=== PATIENT | male | born 2000 | race Two or more races ===

== ENCOUNTER 2022-11-16 01:02 | Inpatient (IN) | payer BC, OTHER ==
[~2022-11-16] VITALS: Ht 195.6 cm; Wt 75.5 kg
[2022-11-16] MEDS ORDERED: OXYCODONE W/ ACETAMINOPHEN 5/325MG TABLET PO ONE (01:30)
[2022-11-16] MEDS ORDERED: METOCLOPRAMIDE HCL 5MG/ml INJ 2ml VIAL IV ONE (01:30)
[2022-11-16 01:58] LABS: Basophils # (auto) 0 10 ^3/uL (0-0.2); Basophils % (auto) 0.3 % (0.0-2.0); Eosinophils # (auto) 0 10 ^3/uL (0-0.8); Hematocrit 27.5 % (41.0-53.0); Hemoglobin 9.1 g/dL (13.5-17.5); Lymphocytes # (auto) 1.2 10 ^3/uL (0.4-5.4); Lymphocytes % (auto) 26.8 % (10.0-50.0); Mean Corpuscular Hgb Conc. 33.2 g/dL (32.0-36.0); Mean Corpuscular Volume 84.4 fL (80.0-100.0); Monocytes # (auto) 0.5 10 ^3/uL (0-1.3); Monocytes % (auto) 11.7 % (0.0-12.0); Neutrophils # (auto) 2.7 10 ^3/uL (1.6-8.6); Neutrophils % (auto) 60.2 % (37.0-80.0); Red Blood Cells 3.26 10^6/uL (4.5-5.90); Red Cell Distribution Width 18.1 % (11.8-14.3); White Blood Cell 4.4 10^3/uL (4.4-10.8)
[2022-11-16 02:22] LABS: INR 1.13 (0.9-1.15); Partial Thromboplastin Time 33.3 sec (24.6-33.4)
[2022-11-16 02:24] LABS: Albumin 1.8 g/dL (3.4-5.0); BUN/Creatinine Ratio 27.9 (10.0-20.0); Calcium 8.1 mg/dL (8.5-10.1); Magnesium 1.6 mg/dL (1.6-2.6); Potassium 3.4 mmol/L (3.5-5.1)
[2022-11-16 02:27] LABS: Bilirubin, Total 0.7 mg/dL (0.2-1.0); Total Protein 5.6 g/dL (6.4-8.2)
[2022-11-16] MEDS ORDERED: HYDROmorphone HCL 2 MG/ML VL/or syr IV ONE ×2 (02:45→04:30)
[2022-11-16] MEDS ORDERED: ACETAMINOPHEN IV 1000 MG/100ML (10MG/ML) IV PRN (02:45)
[2022-11-16] MEDS ORDERED: ONDANSETRON HCL 4 MG/2 ML VIAL IV ONE (02:45)
[2022-11-16] MEDS ORDERED: IOHEXOL 350 MG/ML 100ML IJ ONE (03:02)
[2022-11-16] MEDS ORDERED: ACETAMINOPHEN IV 1000 MG/100ML (10MG/ML) IV SCH (03:30)
[2022-11-16] MEDS ORDERED: D5W/SOD CHLO 0.9% 1,000 ML IV SCH (04:45)
[2022-11-16 05:02] LABS: Urine Bacteria NONE SEEN /hpf (None Seen); Urine WBC 1 /hpf (0 - 3)
[2022-11-16 05:12] LABS: Urine Specific Gravity 1.005 (1.001-1.035)
[2022-11-16 05:13] LABS: Urine Blood 1+ /uL (Negative)
[2022-11-16] MEDS: ONDANSETRON HCL 4 MG/2 ML VIAL IV PRN ×3 (08:06→16:49)
[2022-11-16] MEDS: MORPHINE SULFATE INJ 2 MG/ml SYRG IV PRN ×4 (08:07→22:20)
[2022-11-16] MEDS: PANTOPRAZOLE 40 MG/10 ML VIAL INJ IV SCH (10:11)
[2022-11-16] MEDS: D5W/SOD CHLO 0.9% 1,000 ML IV SCH ×2 (10:45→20:45)
[2022-11-16] MEDS ORDERED: SODIUM CHLORIDE 0.9% 1,000 ML IV ONE (10:45)
[2022-11-16] MEDS ORDERED: POTASSIUM CHL 20MEQ/100ML 100 ML IV ONE (12:00)
[2022-11-16] MEDS: MAGNESIUM SULFATE 1GM/100ML 100 ML IV SCH ×2 (13:08→15:27)
[2022-11-16] MEDS ORDERED: GASTROGRAFIN 120 ML SOL ONE (13:48)
[2022-11-16] MEDS ORDERED: PROMETHAZINE HCL 25 MG/ML 1ML IV PRN (19:00)
[2022-11-16] MEDS: SODIUM CHLORIDE 0.9% 1,000 ML IV SCH (19:09)
[2022-11-17] MEDS: MORPHINE SULFATE INJ 2 MG/ml SYRG IV PRN ×5 (02:30→18:58)
[2022-11-17 05:00] VITALS: BP 100/60
[2022-11-17] MEDS: SODIUM CHLORIDE 0.9% 1,000 ML IV SCH ×2 (05:00→15:00)
[2022-11-17 05:22] LABS: Basophils # (auto) 0 10 ^3/uL (0-0.2); Basophils % (auto) 0.6 % (0.0-2.0); Eosinophils # (auto) 0.1 10 ^3/uL (0-0.8); Eosinophils % (auto) 2.1 % (0.0-7.0); Hematocrit 28.2 % (41.0-53.0); Lymphocytes # (auto) 2.4 10 ^3/uL (0.4-5.4); Lymphocytes % (auto) 46.8 % (10.0-50.0); Mean Corpuscular Hemoglobin 27.9 pg (28.0-32.0); Mean Corpuscular Volume 87.1 fL (80.0-100.0); Monocytes # (auto) 0.9 10 ^3/uL (0-1.3); Monocytes % (auto) 17.6 % (0.0-12.0); Neutrophils # (auto) 1.7 10 ^3/uL (1.6-8.6); Neutrophils % (auto) 32.9 % (37.0-80.0); Nucleated Red Blood Cells % 0.1 %; Red Blood Cells 3.23 10^6/uL (4.5-5.90); Red Cell Distribution Width 19.4 % (11.8-14.3); White Blood Cell 5.1 10^3/uL (4.4-10.8)
[2022-11-17 05:30] LABS: Albumin 1.9 g/dL (3.4-5.0); Calcium 8.1 mg/dL (8.5-10.1); Magnesium 2.3 mg/dL (1.6-2.6); Potassium 3.7 mmol/L (3.5-5.1)
[2022-11-17 05:35] LABS: BUN/Creatinine Ratio 17.4 (10.0-20.0); Bilirubin, Total 0.5 mg/dL (0.2-1.0); Total Protein 5.7 g/dL (6.4-8.2)
[2022-11-17] MEDS ORDERED: CELE200C (05:45)
[2022-11-17] MEDS ORDERED: ASPI1CHW5 PO (05:45)
[2022-11-17] MEDS ORDERED: GAB100C PO (05:45)
[2022-11-17] MEDS ORDERED: METO-517 PO (05:45)
[2022-11-17] MEDS ORDERED: TRAM50TA2 PO (05:45)
[2022-11-17] MEDS: D5W/SOD CHLO 0.9% 1,000 ML IV SCH (06:44)
[2022-11-17 09:00] VITALS: BP 109/64
[2022-11-17] MEDS: PANTOPRAZOLE 40 MG/10 ML VIAL INJ IV SCH (09:44)
[2022-11-17] MEDS: ONDANSETRON HCL 4 MG/2 ML VIAL IV PRN (10:57)
[2022-11-17] MEDS ORDERED: COLCHICINE 0.6 MG CAP PO SCH (12:15)
[2022-11-17] MEDS ORDERED: ASPirin-EC 81 mg tab PO SCH (12:15)
[2022-11-17 13:00] VITALS: BP 116/68
[2022-11-17 16:35] VITALS: BP 109/55
[2022-11-17 18:58] VITALS: BP 110/58
== END 2022-11-17 20:30 | disposition home health service (06) | DRG 388 ==
LOC: ER 01:02 → EDBD 01:02 → OVERFLOW 04:34 → WEST WING 21:35
PROVIDERS: ADMIT Nurse Practitioner; ATTEND Internal Medicine
PROC: 0D9670Z Drainage of Stomach with Drainage Device, Via Natural or Artificial Opening (ICD-10-PCS; principal; 2022-11-16)
DX: K56.50 Intestinal adhesions [bands], unspecified as to partial versus complete obstruction (principal); E43 Unspecified severe protein-calorie malnutrition; Z68.1 Body mass index [BMI] 19.9 or less, adult; Z86.79 Personal history of other diseases of the circulatory system
CPT/HCPCS: 36415; 71260; 74177; 74250; 80053; 81001; 83605; 83690; 83735; 84484; 85025; 85610; 85730; 93005; 96374; 96375; 99291; C9113; G0378; J0131; J2405; J3480

== ENCOUNTER 2023-05-24 19:57 | Inpatient (IN) | payer BC ==
[~2023-05-24] VITALS: Ht 185.4 cm; Wt 85.5 kg
[~2023-05-24 19:57] MED LIST: ASPI1CHW5 PO; GAB100C PO
[2023-05-24 20:53] LABS: Urine Bacteria NONE SEEN /hpf (None Seen); Urine Blood Negative /uL (Negative); Urine Clarity Clear (Clear); Urine Color Yellow (Yellow); Urine Mucus FEW (None Seen); Urine Protein, UAD TRACE (Negative); Urine Specific Gravity 1.043 (1.001-1.035); Urine Urobilinogen Normal (Negative); Urine WBC 1 /hpf (0 - 3); Urine pH 6.5 (5.0-8.0)
[2023-05-24 21:16] LABS: Basophils # (auto) 0 10 ^3/uL (0-0.2); Basophils % (auto) 0.4 % (0.0-2.0); Eosinophils # (auto) 0.1 10 ^3/uL (0-0.8); Hemoglobin 11.8 g/dL (13.5-17.5); Mean Corpuscular Volume 84.2 fL (80.0-100.0); Monocytes # (auto) 0.6 10 ^3/uL (0-1.3)
[2023-05-24 21:17] LABS: Eosinophils % (auto) 1.3 % (0.0-7.0); Hematocrit 36.6 % (41.0-53.0); Lymphocytes % (auto) 42.9 % (10.0-50.0); Mean Corpuscular Hemoglobin 27.1 pg (28.0-32.0); Mean Corpuscular Hgb Conc. 32.2 g/dL (32.0-36.0); Monocytes % (auto) 5.9 % (0.0-12.0); Neutrophils # (auto) 4.6 10 ^3/uL (1.6-8.6); Neutrophils % (auto) 49.5 % (37.0-80.0); Nucleated Red Blood Cells % 0.1 %; Red Blood Cells 4.35 10^6/uL (4.5-5.90); Red Cell Distribution Width 14.8 % (11.8-14.3); White Blood Cell 9.4 10^3/uL (4.4-10.8)
[2023-05-24 21:32] LABS: Alanine Aminotransferase 17 U/L (7-40); Albumin 4.4 g/dL (3.2-4.8); Alkaline Phosphatase 86 U/L (46-116); Anion Gap 7 (5-15); Aspartate Aminotransferase 14 U/L (13-40); BUN/Creatinine Ratio 22.1 (10.0-20.0); Bilirubin, Total 0.5 mg/dL (0.2-1.0); Blood Urea Nitrogen 15 mg/dL (9-23); Calcium 8.7 mg/dL (8.7-10.4); Carbon Dioxide 23 mmol/L (20-30); Chloride 111 mmol/L (98-107); Glucose 88 mg/dL (74-106); Lipase 31 U/L (12-53); Potassium 3.7 mmol/L (3.5-5.1); Sodium 141 mmol/L (136-145); Total Protein 7.1 g/dL (5.7-8.2)
[2023-05-24] MEDS ORDERED: MORPHINE SULFATE 4 MG/ML SYR/VIAL IV ONE (22:30)
[2023-05-24] MEDS ORDERED: ONDANSETRON HCL 4 MG/2 ML VIAL IV ONE (22:30)
[2023-05-24] MEDS ORDERED: LACTATED RINGER'S 2,450 ML IV ONE (22:30)
[2023-05-24] MEDS ORDERED: LACTATED RINGER'S 1,000 ML IV ONE (22:30)
[2023-05-25 00:41] VITALS: PULSE 88; RESP 18; O2SAT 97
[2023-05-25] MEDS ORDERED: PANTOPRAZOLE 40 MG/10 ML VIAL INJ IV ONE (02:15)
[2023-05-25] MEDS: ONDANSETRON HCL 4 MG/2 ML VIAL IV PRN ×2 (04:28→20:01)
[2023-05-25] MEDS: MORPHINE SULFATE INJ 2 MG/ml SYRG IV PRN ×4 (04:28→20:05)
[2023-05-25] MEDS: SODIUM CHLORIDE 0.9% 1,000 ML IV SCH ×3 (05:44→23:43)
[2023-05-25 05:58] LABS: Anion Gap 5 (5-15); Carbon Dioxide 26 mmol/L (20-30); Chloride 111 mmol/L (98-107); Potassium 3.8 mmol/L (3.5-5.1); Sodium 142 mmol/L (136-145)
[2023-05-25 05:59] LABS: Calcium 8.5 mg/dL (8.7-10.4)
[2023-05-25 06:04] LABS: BUN/Creatinine Ratio 23.2 (10.0-20.0); Blood Urea Nitrogen 16 mg/dL (9-23); Glucose 88 mg/dL (74-106); INR 1.09 (0.9-1.15); Prothrombin Time 11.4 sec (9.3-11.8)
[2023-05-25 06:37] LABS: Basophils # (auto) 0 10 ^3/uL (0-0.2); Basophils % (auto) 0.3 % (0.0-2.0); Eosinophils # (auto) 0.1 10 ^3/uL (0-0.8); Eosinophils % (auto) 1.4 % (0.0-7.0); Hematocrit 31.6 % (41.0-53.0); Lymphocytes # (auto) 4.1 10 ^3/uL (0.4-5.4); Lymphocytes % (auto) 50.1 % (10.0-50.0); Mean Corpuscular Hemoglobin 26.9 pg (28.0-32.0); Mean Corpuscular Hgb Conc. 31.8 g/dL (32.0-36.0); Mean Corpuscular Volume 84.5 fL (80.0-100.0); Monocytes # (auto) 0.5 10 ^3/uL (0-1.3); Monocytes % (auto) 6.4 % (0.0-12.0); Neutrophils # (auto) 3.4 10 ^3/uL (1.6-8.6); Neutrophils % (auto) 41.8 % (37.0-80.0); Nucleated Red Blood Cells % 0.1 %; Red Blood Cells 3.74 10^6/uL (4.5-5.90); Red Cell Distribution Width 14.8 % (11.8-14.3); White Blood Cell 8.2 10^3/uL (4.4-10.8)
[2023-05-25 07:51] VITALS: PULSE 67; RESP 16; O2SAT 98
[2023-05-25] MEDS ORDERED: GASTROGRAFIN 120 ML SOL ONE (08:36)
[2023-05-25 18:37] LABS: Chloride 112 mmol/L (98-107); Potassium 4.5 mmol/L (3.5-5.1); Sodium 141 mmol/L (136-145)
[2023-05-25 18:38] LABS: Anion Gap 8 (5-15); Calcium 8.8 mg/dL (8.5-10.1); Carbon Dioxide 21 mmol/L (20-30)
[2023-05-25 18:43] LABS: BUN/Creatinine Ratio 8.8 (10.0-20.0); Glucose 76 mg/dL (74-106)
[2023-05-25 18:44] LABS: Blood Urea Nitrogen 6 mg/dL (9-23)
[2023-05-25 19:34] VITALS: PULSE 68; RESP 17; O2SAT 98
[2023-05-26] MEDS: ONDANSETRON HCL 4 MG/2 ML VIAL IV PRN (01:26)
[2023-05-26] MEDS: MORPHINE SULFATE INJ 2 MG/ml SYRG IV PRN ×4 (01:27→23:16)
[2023-05-26 06:00] LABS: Chloride 112 mmol/L (98-107); Potassium 3.6 mmol/L (3.5-5.1); Sodium 143 mmol/L (136-145)
[2023-05-26 06:01] LABS: Anion Gap 6 (5-15); Carbon Dioxide 25 mmol/L (20-30)
[2023-05-26 06:02] LABS: Calcium 8.3 mg/dL (8.5-10.1)
[2023-05-26 06:06] LABS: Basophils # (auto) 0 10 ^3/uL (0-0.2); Basophils % (auto) 0.2 % (0.0-2.0); Eosinophils # (auto) 0.1 10 ^3/uL (0-0.8); Eosinophils % (auto) 1.7 % (0.0-7.0); Glucose 69 mg/dL (74-106); Hematocrit 30.9 % (41.0-53.0); Hemoglobin 9.9 g/dL (13.5-17.5); Lymphocytes # (auto) 3.3 10 ^3/uL (0.4-5.4); Mean Corpuscular Hemoglobin 27.2 pg (28.0-32.0); Mean Corpuscular Hgb Conc. 32.2 g/dL (32.0-36.0); Mean Corpuscular Volume 84.6 fL (80.0-100.0); Monocytes # (auto) 0.6 10 ^3/uL (0-1.3); Monocytes % (auto) 7.6 % (0.0-12.0); Neutrophils # (auto) 3.4 10 ^3/uL (1.6-8.6); Neutrophils % (auto) 46.5 % (37.0-80.0); Nucleated Red Blood Cells % 0.1 %; Red Blood Cells 3.65 10^6/uL (4.5-5.90); Red Cell Distribution Width 15.1 % (11.8-14.3); White Blood Cell 7.4 10^3/uL (4.4-10.8)
[2023-05-26 06:07] LABS: BUN/Creatinine Ratio 14.3 (10.0-20.0); Blood Urea Nitrogen 10 mg/dL (9-23)
[2023-05-26] MEDS: SODIUM CHLORIDE 0.9% 1,000 ML IV SCH ×2 (08:24→18:15)
[2023-05-26 08:32] VITALS: PULSE 90; RESP 18; O2SAT 97
[2023-05-26 09:00] VITALS: BP 105/55; PULSE 83; RESP 20; TEMP 98.3; O2SAT 100
[2023-05-26] MEDS ORDERED: SODIUM CHLORIDE 0.9% 500 ML IV ONE (11:30)
[2023-05-26] MEDS: ACETAMINOPHEN 325 MG TAB PO PRN ×2 (11:55→20:40)
[2023-05-26 13:15] VITALS: BP 122/84; PULSE 84; RESP 18; TEMP 98; O2SAT 95
[2023-05-26 17:00] VITALS: BP 108/52; TEMP 98.4; O2SAT 97
[2023-05-26 20:00] VITALS: BP 119/64; PULSE 106; PULSE 107; PULSE 97; RESP 17; TEMP 97.9; O2SAT 95
[2023-05-26 22:00] VITALS: BP 119/64; PULSE 97; RESP 17; TEMP 97.9; O2SAT 95
[2023-05-27] VITALS (8 sets, daily range): BP systolic 106–119; BP diastolic 55–67; PULSE 61–97; RESP 12–22; TEMP 97–98.7; O2SAT 95–100
[2023-05-27] MEDS: SODIUM CHLORIDE 0.9% 1,000 ML IV SCH ×2 (04:32→14:40)
[2023-05-27] MEDS: MORPHINE SULFATE INJ 2 MG/ml SYRG IV PRN ×5 (04:32→22:09)
[2023-05-27] MEDS ORDERED: CELE100C82 PO (07:08)
[2023-05-27 08:14] LABS: Basophils # (auto) 0 10 ^3/uL (0-0.2); Basophils % (auto) 0.4 % (0.0-2.0); Eosinophils # (auto) 0.2 10 ^3/uL (0-0.8); Eosinophils % (auto) 2.3 % (0.0-7.0); Hematocrit 35.3 % (41.0-53.0); Hemoglobin 11.4 g/dL (13.5-17.5); Lymphocytes # (auto) 3.3 10 ^3/uL (0.4-5.4); Lymphocytes % (auto) 41.3 % (10.0-50.0); Mean Corpuscular Hemoglobin 27.4 pg (28.0-32.0); Mean Corpuscular Hgb Conc. 32.4 g/dL (32.0-36.0); Mean Corpuscular Volume 84.5 fL (80.0-100.0); Monocytes # (auto) 0.7 10 ^3/uL (0-1.3); Monocytes % (auto) 8.9 % (0.0-12.0); Neutrophils # (auto) 3.7 10 ^3/uL (1.6-8.6); Neutrophils % (auto) 47.1 % (37.0-80.0); Red Blood Cells 4.17 10^6/uL (4.5-5.90); Red Cell Distribution Width 15.1 % (11.8-14.3); White Blood Cell 7.9 10^3/uL (4.4-10.8)
[2023-05-27] MEDS ORDERED: OMNIPAQUE 12mg/ml 500ml ORAL SOLUTION PO ONE (11:48)
[2023-05-27] MEDS ORDERED: IOHEXOL 300 MG/ML 100ML BOTTLE IJ ONE (13:38)
[2023-05-28] MEDS: SODIUM CHLORIDE 0.9% 1,000 ML IV SCH ×2 (00:30→10:15)
[2023-05-28 05:00] VITALS: BP 96/53; PULSE 60; RESP 22; TEMP 97.9; O2SAT 100
[2023-05-28 06:19] LABS: Basophils # (auto) 0 10 ^3/uL (0-0.2); Eosinophils # (auto) 0.2 10 ^3/uL (0-0.8); Neutrophils # (auto) 3.6 10 ^3/uL (1.6-8.6); Red Cell Distribution Width 14.9 % (11.8-14.3)
[2023-05-28 06:22] LABS: Basophils % (auto) 0.2 % (0.0-2.0); Eosinophils % (auto) 2.1 % (0.0-7.0); Hematocrit 34.2 % (41.0-53.0); Lymphocytes % (auto) 40.3 % (10.0-50.0); Mean Corpuscular Hemoglobin 27.2 pg (28.0-32.0); Mean Corpuscular Hgb Conc. 32.2 g/dL (32.0-36.0); Mean Corpuscular Volume 84.7 fL (80.0-100.0); Monocytes # (auto) 0.6 10 ^3/uL (0-1.3); Monocytes % (auto) 8.6 % (0.0-12.0); Neutrophils % (auto) 48.8 % (37.0-80.0); Red Blood Cells 4.03 10^6/uL (4.5-5.90); White Blood Cell 7.4 10^3/uL (4.4-10.8)
[2023-05-28 08:00] VITALS: BP 115/63; PULSE 75; PULSE 83; PULSE 85; RESP 22; TEMP 98.4; O2SAT 98
[2023-05-28] MEDS: MORPHINE SULFATE INJ 2 MG/ml SYRG IV PRN (09:45)
[2023-05-28 13:00] VITALS: BP 112/72; PULSE 58; PULSE 80; RESP 18; TEMP 97.8; TEMP 98.6; O2SAT 100; O2SAT 99
[2023-05-28] MEDS ORDERED: DICYCLOMINE HCL 10 MG CAP PO PRN (13:30)
[2023-05-28] MEDS: ACETAMINOPHEN 325 MG TAB PO PRN (16:23)
[2023-05-28 17:06] VITALS: BP 112/60; PULSE 68; RESP 20; TEMP 98; O2SAT 100
[2023-05-28 18:07] VITALS: TEMP 36.7
[2023-05-28 20:00] VITALS: BP 96/53; PULSE 103; PULSE 94; PULSE 96; RESP 18; TEMP 98.7; O2SAT 96
[2023-05-28] MEDS ORDERED: DICYCLOMINE HCL 10 MG CAP PO SCH (22:00)
== END 2023-05-28 20:51 | disposition home health service (06) | DRG 392 ==
LOC: ER 19:57 → TELE 05-25 02:10 → TELE-WESTW 05-26 06:13
PROVIDERS: ADMIT Internal Medicine; ATTEND Internal Medicine
PROC: 0D9670Z Drainage of Stomach with Drainage Device, Via Natural or Artificial Opening (ICD-10-PCS; principal; 2023-05-25)
DX: R10.32 Left lower quadrant pain (principal); D64.9 Anemia, unspecified; G62.9 Polyneuropathy, unspecified
CPT/HCPCS: 36415; 71045; 71260; 74176; 74177; 74250; 80048; 80053; 81001; 83605; 83615; 83690; 85025; 85610; 96361; 96374; 96375; C9113; G0378; J2405